=== PATIENT | male | born 1950 | race Caucasian/White ===

== ENCOUNTER 2016-09-12 09:15 | Outpatient (CLI) | payer MEDICARE, BC | END 2016-09-12 09:16 | disposition home or self-care (01) | DX: I10 Essential (primary) hypertension (principal); E78.2 Mixed hyperlipidemia; M54.16 Radiculopathy, lumbar region; Z72.89 Other problems related to lifestyle ==

== ENCOUNTER 2016-11-19 08:49 | Outpatient (CLI) | payer MEDICARE, BC | END 2016-11-19 08:50 | disposition home or self-care (01) | LOC: LAB.F 08:49 | PROVIDERS: ATTEND Internal Medicine | DX: M79.1 Myalgia (principal) | CPT/HCPCS: 36415; 82550 ==

== ENCOUNTER 2017-02-04 09:00 | Outpatient (CLI) | payer MEDICARE, BC ==
[2017-02-04 19:21] LABS: BUN - BLOOD UREA NITROGEN 19 mg/dL (6-20); CALCIUM 9.5 mg/dL (8.5-10.3); CARBON DIOXIDE - CO2 26 mmol/L (21-32); CHLORIDE 100 mmol/L (101-111); CHOL/HDL RATIO 4.1 (<5.0); CHOLESTEROL 124 mg/dL; GFR - MDRD 75 (>89); GLUCOSE 98 mg/dL (70-100); HDL CHOLESTEROL 30 mg/dL; LDL/HDL RATIO 1.5 (<3.6); POTASSIUM 3.7 mmol/L (3.5-5.0); SODIUM 137 mmol/L (135-145); TRIGLYCERIDES 249 mg/dL; VLDL CHOLESTEROL 50 mg/dL
== END 2017-02-04 09:01 | disposition home or self-care (01) ==
LOC: LAB.F 09:00
PROVIDERS: ATTEND Internal Medicine
DX: I10 Essential (primary) hypertension (principal)
CPT/HCPCS: 36415; 80048; 80061; 84460

== ENCOUNTER 2017-06-21 01:57 | Observation (INO) | payer MEDICARE, BC ==
[2017-06-21] MEDS ORDERED: MORPHINE 10 MG/ML VIAL IVP STA (02:17)
[2017-06-21] MEDS ORDERED: SODIUM CHLORIDE 0.9% 1,000 ML IV ONE (02:17)
[2017-06-21] MEDS ORDERED: ONDANSETRON 4 MG/2 ML VIAL IVP STA (02:17)
--- NOTE | 2017-06-21 02:22 | ED Physician Documentation ---
History of Present Illness - Stated complaint Stated Complaint: ABD PAIN - Chief complaint Chief Complaint: Abd Pain - Additonal information Additional information: 67-year-old male with past medical history of hypertension presents to the emergency department with upper abdominal pain beginning about an hour after eatingSausage.He reports that the pain really flared up after he drank some soda. This was around 7 PM,He has had constant pain since then, had a bowel movement but did not change his pain. He has some nausea but no vomiting. Currently he reports that the pain is diffuse.No urinary symptoms, no fevers. no history of abdominal surgery. Review of Systems Constitutional: denies: Fever Cardiac: denies: Chest pain / pressure, Palpitations Respiratory: denies: Dyspnea, Cough GI: reports: Abdominal Pain, Nausea : denies: Dysuria, Frequency Skin: denies: Rash Musculoskeletal: denies: Extremity pain Neurologic: denies: Altered mental status PD PAST MEDICAL HISTORY - Present Medications Home Medications: Ambulatory Orders Medication Instructions Recorded Confirmed Home Medications Unobtainable 06/21/17 06/21/17 [HOME MEDICATIONS UNOBTAINABLE] - Allergies Allergies/Adverse Reactions: Allergies Allergy/AdvReac Type Severity Reaction Status Date / Time No Known Drug Allergies Allergy Verified 06/21/17 02:07 PD ED PE NORMAL - Vitals Vital signs reviewed: Yes - General General: Alert and oriented X 3, Other (appears mildly uncomfortable ) - HEENT HEENT: PERRL - Neck Neck: Supple, no meningeal sign - Cardiac Cardiac: RRR, No murmur - Respiratory Respiratory: Clear bilaterally - Abdomen Abdomen: Soft, Other ( distension, RUQ TTP without rebound or guarding) - Derm Derm: Warm and dry - Extremities Extremities: No deformity - Neuro Neuro: Alert and oriented X 3 - Psych Psych: Normal mood, Normal affect Results - Vitals Vitals: Vital Signs - 24 hr 06/21/17 02:06 Temperature 36.6 C Heart Rate 95 Respiratory 18 Rate Blood Pressure 137/83 H O2 Saturation 97 Oxygen O2 Source Room air - EKG (time done) 0228 Rate: Rate (enter#) (84) Rhythm: NSR [place]: Normal Intervals: Normal [place] Ischemia: Normal ST segments - Labs Labs: Laboratory Tests 06/21/17 06/21/17 02:30 02:30 WBC 12.1 H RBC 5.55 Hgb 15.9 Hct 46.9 MCV 84.5 MCH 28.6 MCHC 33.8 RDW 14.2 Plt Count 185 MPV 8.9 Neut # 9.8 H Lymph # 1.2 L [place] # 0.8 Eos # 0.1 Baso # 0.1 Absolute Nucleated RBC 0.00 Nucleated RBC % 0.0 Sodium 138 Potassium 3.5 Chloride 99 L Carbon Dioxide 27 Anion Gap 12.0 BUN 21 H Creatinine 1.1 Estimated GFR (MDRD) 67 L Glucose 122 H Calcium 9.4 Total Bilirubin 0.8 AST 21 ALT 25 Alkaline Phosphatase 73 Total Protein 7.6 Albumin 4.3 Globulin 3.3 Albumin/Globulin Ratio 1.3 Lipase 19 L - Rads (name of study) CT abd/pel Radiology: Discussed with rads (Appears to have dilated bowel consistent with enteritis. Appearnce of lymphoma. ) PD MEDICAL DECISION MAKING - ED course ED course: 67-year-old male with abdominal pain and distention and nausea found to have normal laboratory evaluation, CT scan with lymphoma as well as enteritis versus partial or early small bowel obstruction. 446AM Discussed with patient and his CT findings concerning for lymphoma and need for follow up. They expressed understanding of possible or likely cancer diagnosis. Patient continues to have some abdominal discomfort, he has had no vomiting. We will p.o. challenge, and reassess. 513 am Patient has had only mild improvement in his symptoms, was given p.o. medications for the possibility of discharge home, however I discussed patient' s case with Dr. Lou from surgery, he recommended that the patient be admitted to the hospital for further monitoring. I do have concern on review of his CT scan with decompressed distal small bowel that this may be more likely to represent a early small bowel obstruction or partial small bowel obstruction than an infectious enteritis. Especially given that the patient has not had fevers or diarrhea. It is also possible that his bowel obstruction could be due to lymphoma. Departure - Departure Disposition: 66 [facility] DC/Xfer Clinical Impression: Abdominal pain, Lymphadenopathy
[2017-06-21 02:36] LABS: BASOPHILS # (AUTO) 0.1 10^3/uL (0.0-0.1); BASOPHILS % (AUTO) 0.6 %; EOSINOPHILS # (AUTO) 0.1 10^3/uL (0.0-0.7); EOSINOPHILS % (AUTO) 0.9 %; HCT - HEMATOCRIT 46.9 % (42.0-52.0); HGB - HEMOGLOBIN 15.9 g/dL (14.0-18.0); LYMPHOCYTES # (AUTO) 1.2 10^3/uL (1.5-3.5); LYMPHOCYTES % (AUTO) 10.2 %; MEAN CORPUSCULAR HEMOGLOBIN 28.6 pg (27.0-31.0); MEAN CORPUSCULAR HGB CONC 33.8 g/dL (32.0-36.0); MEAN CORPUSCULAR VOLUME 84.5 fL (80.0-94.0); MEAN PLATELET VOLUME 8.9 fL (7.4-11.4); MONOCYTES # (AUTO) 0.8 10^3/uL (0.0-1.0); MONOCYTES % (AUTO) 6.9 %; NEUTROPHILS # (AUTO) 9.8 10^3/uL (1.5-6.6); NEUTROPHILS % (AUTO) 81.4 %; RED BLOOD COUNT 5.55 10^6/uL (4.70-6.10); RED CELL DISTRIBUTION WIDTH 14.2 % (12.0-15.0); UNCORRECTED WHITE BLOOD COUNT 12.1 x10^3/uL; WHITE BLOOD COUNT 12.1 x10^3/uL (4.8-10.8)
[2017-06-21] MEDS ORDERED: MORPHINE 2 MG/ML SYRINGE ONE ×2 (02:36)
[2017-06-21] MEDS ORDERED: ONDANSETRON 4 MG/2 ML VIAL ONE (02:37)
[2017-06-21 02:45] LABS: ALBUMIN/GLOBULIN RATIO 1.3 (1.0-2.2); BILIRUBIN,TOTAL 0.8 mg/dL (0.2-1.0); CALCIUM 9.4 mg/dL (8.5-10.3); CREATININE 1.1 mg/dL (0.6-1.2); POTASSIUM 3.5 mmol/L (3.5-5.0); TOTAL PROTEIN 7.6 g/dL (6.7-8.2)
[2017-06-21] MEDS ORDERED: IOPAMIDOL-300 100 ML VIAL ONE ×2 (03:07→10:11)
[2017-06-21] MEDS: IOPAMIDOL-300 100 ML VIAL IVP ONE ×2 (03:26→10:41)
--- NOTE | 2017-06-21 04:15 | CT Preliminary Report ---
Exam: CT ABDOMEN/PELVIS W/ IMPRESSION: 1. Mildly distended fluid-filled jejunum in the anterior left abdomen with adjacent mesenteric edema. No discrete transition seen and this may reflect a nonspecific enteritis versus early/partial small bowel obstruction. 2. Widespread adenopathy concerning for lymphoma. No definitive lymphomatous involvement of the bowel . 3. Previous cholecystectomy. 4. Severe coronary calcifications. Results discussed with Dr. Escobedo. [facility] SITE ID: [id number]
--- NOTE | 2017-06-21 04:28 | CT Report ---
EXAM: CT ABDOMEN AND PELVIS EXAM DATE: 06/21/2017 03:27 AM. CLINICAL HISTORY: Upper abdominal pain, nausea. COMPARISONS: None. TECHNIQUE: Routine helical CT imaging was performed through the abdomen and pelvis. IV contrast: Yes . Enteric contrast: No . Reconstructions: Coronal and sagittal. In accordance with CT protocol optimization, one or more of the following dose reduction techniques w ere utilized for this exam: automated exposure control, adjustment of mA and/or KV based on patient s ize, or use of iterative reconstructive technique. FINDINGS: Lung Bases: Large lymph node posterior to the esophagus is incompletely imaged but measures up to 48 x 26 mm on image 1. Severe coronary calcifications. Abdominal/pelvic adenopathy: Extensive mesenteric and retroperitoneal adenopathy. Mild pelvic and ing uinal adenopathy also present. Retroperitoneal lymph nodes measure up to 30 x 25 mm between the aorta and IVC on axial image 43. Mesenteric lymph nodes measure up to 35 x 22 mm in the left mesentery on image 46 series 3. Mildly prominent inguinal lymph nodes are indeterminate for lymphoma involvement, measuring up to 15 mm short axis on the right on image 91 series 3. Favor these being reactive lymph nodes over lymphoma tous lymph nodes. Liver: Unremarkable. No suspicious masses. Gallbladder/Bile Ducts: Unremarkable post cholecystectomy. Spleen: Unremarkable. Pancreas: Unremarkable. Adrenal Glands: Unremarkable. Kidneys: Unremarkable. No suspicious masses or hydronephrosis. Peritoneal Cavity/Bowel: Mildly distended fluid-filled jejunum in the anterior left abdomen with [place] mesenteric edema. No discrete transition seen but there are relatively decompressed mid to dista l small bowel loops. No free air seen. Mild free fluid. Pelvic Organs: Bladder and prostate appear unremarkable. Vasculature: No aneurysms or other significant abnormality. Bones: No significant abnormality. Other: None. IMPRESSION: 1. Mildly distended fluid-filled jejunum in the anterior left abdomen with adjacent mesenteric edema. No discrete transition seen and this may reflect a nonspecific enteritis versus early/partial small bowel obstruction. 2. Widespread adenopathy concerning for lymphoma. No definitive lymphomatous involvement of the bowel . 3. Previous cholecystectomy. 4. Severe coronary calcifications. Results discussed with Dr. Escobedo. [facility] Referring Provider Line: [phone] SITE ID: [id number]
[2017-06-21] MEDS ORDERED: oxyCOD/ACETAMIN 5 MG/325 MG TABLET PO STA (04:48)
[2017-06-21] MEDS ORDERED: oxyCOD/ACETAMIN 5 MG/325 MG TABLET PO ONE (04:56)
[2017-06-21] MEDS ORDERED: SODIUM CHLORIDE FLUSH 0.9% 10 ML SYRINGE IVP PRN (05:22)
[2017-06-21] MEDS ORDERED: MORPHINE 2 MG/ML SYRINGE IVP PRN (05:22)
[2017-06-21] MEDS ORDERED: PROMETHAZINE 25 MG/1 ML VIAL IM PRN (05:22)
[2017-06-21] MEDS ORDERED: ONDANSETRON 4 MG/2 ML VIAL IVP PRN (05:22)
[2017-06-21] MEDS ORDERED: oxyCODONE 5 MG TABLET PO PRN ×2 (05:22)
[2017-06-21] MEDS ORDERED: PROCHLORPERAZINE 10 MG/2 ML VIAL IVP PRN (05:22)
[2017-06-21] MEDS ORDERED: ACETAMINOPHEN 325 MG TABLET PO PRN (05:22)
--- NOTE | 2017-06-21 05:28 | HISTORY & PHYSICAL EXAMINATION ---
Chief Complaint - Chief Complaint Chief Complaint: Abdominal pain History of Present Illness - Admitted From Admitted From:: Emergency department - History Obtained From Records Reviewed: Yes History obtained from: Patient Exam Limitations: None - History of Present Illness HPI Comment/Other: Patient is a 67-year-old gentleman with a past medical history significant for hypertension, hyperlipidemia, obesity and GERD who presented to the emergency department with a chief complaint of abdominal pain. The patient states he was in his normal state of health until around 6 PM tonight when he states that he made himself a sandwich and was watching football on the [employer]. He states that just after he drank a sip of diet Pepsi he began having severe abdominal pain. He states the pain was located just above the umbilicus and moved around into his epigastric area. He states that the pain was a colicky/spasming pain that was coming and going. He states that he felt some acid reflux and took a Pepto- Bismol. He states that the pain continued to come and go and he took some Tums but the pain just would not resolve. He states that he tried to go to bed but the pain was too much and he ended up coming into the emergency department. The patient states that he did not have any nausea with the pain while at home. He denies any fevers, chills or diarrhea. He does state that he tried to have a bowel movement and was able to have a small bowel movement but this did not help to alleviate the pain. The patient denies any pain similar to this in the past. The patient does admit to having a cholecystectomy in the past. He denies any other major abdominal surgeries. The patient denies any bloody stools. Patient denies any headaches, blurred vision, runny nose, sore throat, nasal congestion, difficulty swallowing, neck pain, neck stiffness, chest pain, shortness of air, orthopnea, PND, dysuria, increased urinary urgency, increased urinary frequency, joint swelling, muscle aches, muscle pain, back pain, recent unintentional weight loss or changes in his appetite. He also denies any focal neurologic deficits. On presentation to the emergency department the patient was found to be afebrile he was slightly hypertensive and slightly tachycardic but was not in any respiratory distress. Patient was having some mild to moderate distress secondary to his abdominal pain. The patient was given a dose of IV morphine in the emergency department which did help with the pain. Patient was also given an antiemetic as he did become nauseated in the emergency department. The patient underwent routine lab work which showed a leukocytosis of 12.1 but electrolytes were all within normal limits. The patient underwent a CT of his abdomen and pelvis given the severity of his pain. The CT revealed mildly distended fluid filled jejunum in the anterior left abdomen with adjacent mesenteric edema. There was no discrete transition seen and it was thought that this may reflect non-specific enteritis versus early/partial small bowel obstruction. The patient was also found to have widespread adenopathy that was concerning for lymphoma. The emergency room physician spoke with the surgeon suction dredge dumping supervisor Dr. Marek Lou and he suggested that the patient be placed in observation for further assessment and that he would see the patient in consultation. History - Past Medical History Cardiovascular: reports: Hypertension, High cholesterol GI: reports: GERD MRSA Hx?: No Other Past Medical History: Obesity - Past Surgical History General: reports: Cholecystectomy Ortho: reports: Rotator cuff repair - Family & Social History Family History: Mother: , Cancer, Father: , CAD Living arrangement: At home Living Situation: With spouse/s.o. Social History Notes: Patient is originally from [place] moved to [place] 1 year ago. Retired. Lives with and has 2 kids. He moved out here as his sister lives here. The patient states that he smoked for a few years while he was in the [employer] but quit at the age of 22. He does drink daily but did not specify how much he drinks. He denies any illicit drug use. - POLST Patient has POLST: No POLST Status: Full Code Meds/Allgy - Home Medications Home Medications: Ambulatory Orders Medication Instructions Recorded Confirmed Home Medications Unobtainable 06/21/17 06/21/17 [HOME MEDICATIONS UNOBTAINABLE] - Allergies Allergies/Adverse Reactions: Allergies Allergy/AdvReac Type Severity Reaction Status Date / Time No Known Drug Allergies Allergy Verified 06/21/17 02:07 Review of Systems - Other Findings Other Findings: A comprehensive review of systems was performed the pertinent positives and negatives are stated above in the HPI and the remainder of the review of systems is negative. Exam - Vital Signs Reviewed Vital Signs: Yes Vital Signs: Vital Signs x48h Temp Pulse Resp BP Pulse Ox 06/21/17 02:06 36.6 C 95 18 137/83 H 97 - Physical Exam General Appearance: positive: Alert, Mild distress (Secondary to abdominal pain) Eyes Bilateral: positive: Normal inspection, PERRL, EOMI, No lid inflammation, Conjunctivae nml, No scleral icterus ENT: positive: ENT inspection nml, Pharynx nml, Dry mucous membranes. negative : Purulent nasal drainage, Pharyngeal erythema, Oral lesions Neck: positive: Nml inspection, Thyroid nml, No JVD, Trachea midline. negative : Thyromegaly, Lymphadenopathy (R), Lymphadenopathy (L), Carotid bruit, Tracheal deviation Respiratory: positive: Chest non-tender, No respiratory distress, Breath sounds nml. negative: Wheezes, Rales, Rhonchi Cardiovascular: positive: Regular rate & rhythm, No murmur, No gallop Peripheral Pulses: positive: 2+ Abdomen: positive: Tenderness (Periumbilical and upper abdomen), Abnml bowel sounds (Decreased). negative: Guarding, Rebound, Hepatomegaly Back: positive: Nml inspection. negative: CVA tenderness (R), CVA tenderness (L ) Skin: positive: Color nml, No rash, Warm, Dry. negative: Cyanosis, Pallor Extremities: positive: Non-tender, Full ROM, Nml appearance, No pedal edema Neurologic/Psychiatric: positive: Oriented x3, CN's nml (2-12), Motor nml, Sensation nml, Mood/affect nml Conclusion/Plan - Problem List (1) Small bowel obstruction Conclusion/Plan: Patient presented with abdominal pain starting late yesterday evening that persisted. Patient nauseated requiring antiemetics in the emergency department. CT abdomen/pelvis showed likely partial small bowel obstruction versus possible enteritis. Patient has history of cholecystectomy. Patient does not have symptoms consistent with enteritis as he does not have diarrhea, fever and does not appear infected. Plan: N.p.o. IV fluids IV antiemetics Pain control with IV pain medication Surgery consult Monitor (2) Lymphadenopathy Conclusion/Plan: Patient's CT scan shows diffuse widespread adenopathy concerning for lymphoma. Patient has extensive mesenteric and retroperitoneal adenopathy. Mild pelvic and inguinal adenopathy also present. Patient also has lymphadenopathy in the lungs. Patient denies any recent unintentional weight loss, night sweats or chills. Plan: Patient will need close outpatient follow-up for further workup of lymphadenopathy as he will need biopsy. (3) Hypertension Conclusion/Plan: Patient's blood pressure is mildly elevated on presentation this is likely secondary to pain. The patient does take antihypertensive medication at home but cannot recall what medications he is on. We will ask the pharmacy to try to get his medication records so that we can continue him on his home medications. Qualifiers: Hypertension type: essential hypertension Qualified Code(s): I10 - Essential (primary) hypertension (4) Hyperlipidemia Conclusion/Plan: The patient states that he does take a statin at home but does not know the statin or the dose. We will find out the patient's home medication and restart his statin. (5) Prophylactic use of low molecular weight heparin for venous thromboembolism Conclusion/Plan: Placed on Lovenox for DVT prophylaxis while patient is hospitalized - Lab Results Lab results reviewed: Yes Fish Bones: 06/21/17 02:30 06/21/17 02:30 Other Lab Results: Laboratory Results WBC 12.1 x10^3/uL (4.8-10.8) H 06/21/17 02:30 RBC 5.55 10^6/uL (4.70-6.10) 06/21/17 02:30 Hgb 15.9 g/dL (14.0-18.0) 06/21/17 02:30 Hct 46.9 % (42.0-52.0) 06/21/17 02:30 MCV 84.5 fL (80.0-94.0) 06/21/17 02:30 MCH 28.6 pg (27.0-31.0) 06/21/17 02:30 MCHC 33.8 g/dL (32.0-36.0) 06/21/17 02:30 RDW 14.2 % (12.0-15.0) 06/21/17 02:30 Plt Count 185 10^3/uL (130-450) 06/21/17 02:30 MPV 8.9 fL (7.4-11.4) 06/21/17 02:30 Neut # 9.8 10^3/uL (1.5-6.6) H 06/21/17 02:30 Lymph # 1.2 10^3/uL (1.5-3.5) L 06/21/17 02:30 [place] # 0.8 10^3/uL (0.0-1.0) 06/21/17 02:30 Eos # 0.1 10^3/uL (0.0-0.7) 06/21/17 02:30 Baso # 0.1 10^3/uL (0.0-0.1) 06/21/17 02:30 Absolute Nucleated RBC 0.00 x10^3/uL 06/21/17 02:30 Nucleated RBC % 0.0 /100WBC 06/21/17 02:30 Sodium 138 mmol/L (135-145) 06/21/17 02:30 Potassium 3.5 mmol/L (3.5-5.0) 06/21/17 02:30 Chloride 99 mmol/L (101-111) L 06/21/17 02:30 Carbon Dioxide 27 mmol/L (21-32) 06/21/17 02:30 Anion Gap 12.0 (6-13) 06/21/17 02:30 BUN 21 mg/dL (6-20) H 06/21/17 02:30 Creatinine 1.1 mg/dL (0.6-1.2) 06/21/17 02:30 Estimated GFR (MDRD) 67 (>89) L 06/21/17 02:30 Glucose 122 mg/dL (70-100) H 06/21/17 02:30 Calcium 9.4 mg/dL (8.5-10.3) 06/21/17 02:30 Total Bilirubin 0.8 mg/dL (0.2-1.0) 06/21/17 02:30 AST 21 IU/L (10-42) 06/21/17 02:30 ALT 25 IU/L (10-60) 06/21/17 02:30 Alkaline Phosphatase 73 IU/L (42-121) 06/21/17 02:30 Total Protein 7.6 g/dL (6.7-8.2) 06/21/17 02:30 Albumin 4.3 g/dL (3.2-5.5) 06/21/17 02:30 Globulin 3.3 g/dL (2.1-4.2) 06/21/17 02:30 Albumin/Globulin Ratio 1.3 (1.0-2.2) 06/21/17 02:30 Lipase 19 U/L (22-51) L 06/21/17 02:30 - Diagnostic Imaging Results Diagnostic Imaging Results: positive: Final report reviewed Diagnostic Imaging Results Comments: CT abdomen/pelvis Impression: 1. Mildly distended fluid filled jejunum in the anterior left abdomen with adjacent mesenteric edema. No discrete transition seen in this may reflect a nonspecific enteritis versus early/partial small bowel obstruction. 2. Widespread adenopathy concerning for lymphoma. No definitive lymphomatous involvement of the bowel. 3. Previous cholecystectomy 4. Severe coronary calcifications - EKG Results EKG Interpreted Independently: Yes EKG Findings: Sinus rhythm no ST elevations or ischemic changes Issues/Core Measures - Anticipated LOS Anticipated Stay Length: Less than 2 midnights - [facility] Requirement for [facility] I expect patient to be DC'd or transferred within 96 hours.: Yes - DVT/VTE - Prophylaxis VTE/DVT Prophylaxis med ordered at admit?: Yes
[2017-06-21] MEDS: SODIUM CHLORIDE 0.9% 1,000 ML IV SCH ×2 (06:16→17:03)
[2017-06-21] MEDS: SODIUM CHLORIDE FLUSH 0.9% 10 ML SYRINGE IVP SCH ×2 (06:16→10:12)
[2017-06-21] MEDS ORDERED: POLYETHYLENE GLYCOL 3350 17 GM PACKET PO SCH (09:00)
[2017-06-21] MEDS ORDERED: FAMOTIDINE 20 MG TABLET PO SCH (09:00)
[2017-06-21] MEDS ORDERED: ENOXAPARIN 40 MG/0.4 ML SYRINGE SUBQ SCH (09:00)
[2017-06-21] MEDS ORDERED: IOPAMIDOL-300 100 ML VIAL IVP ONE (10:41)
--- NOTE | 2017-06-21 11:15 | CT Preliminary Report ---
Exam: CT CHEST W/ IMPRESSION: Bulky subcarinal and left greater than right upper paratracheal adenopathy. Extensive coronary arteri al atherosclerotic calcifications. [facility] SITE ID: [id number]
--- NOTE | 2017-06-21 11:33 | CT Report ---
EXAM: CT CHEST EXAM DATE: 06/21/2017 10:42 AM. CLINICAL HISTORY: Mediastinal lymphadenopathy. COMPARISONS: None. TECHNIQUE: Routine helical CT imaging was performed through the chest. IV contrast: 100 cc Isovue-300 . Reconstructions: Coronal and sagittal. In accordance with CT protocol optimization, one or more of the following dose reduction techniques w ere utilized for this exam: automated exposure control, adjustment of mA and/or KV based on patient s ize, or use of iterative reconstructive technique. FINDINGS: Lungs/Pleura: No nodules, bronchial thickening, consolidation, or edema. Pulmonary vasculature is nor mal. No pericardial or pleural effusion. No pneumothorax. Mediastinum: Mediastinal adenopathy is present. Account Review Specialist lymph nodes include a left upper parat martin station 2L lymph node measuring 2.2 cm short axis on series 3 image 16. 1.4 cm short axis right upper paratracheal station 2R lymph node. Station 7 subcarinal lymph nodes measure 2.6 cm short axis on image 34. There is leftward displacemen t of the esophagus by subcarinal adenopathy. No bulky right lower paratracheal or prevascular adenopathy. [place] mediastinal lymph nodes are also noted. Extensive coronary arterial atherosclerotic calcifications. No cardiomegaly. No pericardial effusion. Bones: Lower thoracic spine DISH. Mild mid to lower thoracic spine degenerative disk changes. Visualized Abdomen: Please see separate abdominal CT report same day. Other: None. IMPRESSION: 1. Bulky subcarinal and left greater than right upper paratracheal adenopathy. Question lymphoma or o ther cause. 2. Extensive coronary arterial atherosclerotic calcifications. [facility] Referring Provider Line: [phone] SITE ID: [id number]
[2017-06-21] MEDS ORDERED: LACTATED RINGERS 1,000 ML IV ONE ×2 (14:03→14:27)
[2017-06-21] MEDS ORDERED: BUPIVACAINE 0.5% PF 30 ML VIAL INFIL ONE (14:24)
[2017-06-21] MEDS ORDERED: ACETAMINOPHEN 1,000 MG/100 ML 100 ML IV ONE (14:40)
[2017-06-21] MEDS ORDERED: LIDOCAINE-MPF 2% 5 ML VIAL IM ONE (14:40)
[2017-06-21] MEDS ORDERED: PROPOFOL 200 MG/20 ML VIAL IVP ONE (14:40)
[2017-06-21] MEDS ORDERED: KETOROLAC 30 MG/ML VIAL IVP ONE (14:40)
[2017-06-21] MEDS ORDERED: HYDROcod/ACETAM 5/325 MG TABLET PO PRN (15:08)
[2017-06-21 16:18] VITALS: BP 140/76
--- NOTE | 2017-06-21 16:52 | Discharge Plan ---
Discharge Plan Disposition: 01 Home, Self Care Condition: Stable Diet: Regular Activity Restrictions: Activity as Tolerated Shower Restrictions: No Weight Bearing: Full Weight Instruction Topics: Lymphoma Hodgkin Ch, Lymphoma Non Hodgkin Ch, Obstruction Sm Bowel Additional Instructions or Follow Up instructions: May follow up Dr. Lou in one week, and follow up PCP in two weeks. Should symptoms return or worsen, present ER or call 911. Patient is welcome to our service. No Smoking: If you smoke, Please STOP! Call for help.
--- NOTE | 2017-06-21 17:03 | DISCHARGE SUMMARY ---
"Discharge Summary Discharge Date: 06/21/17 Discharging Provider: Cason Primary Care Provider: pt state he just change a new PCP, he did not know the name yet Code Status: Attempt Resuscitation Condition at Discharge: Stable Discharge Disposition: 01 Home, Self Care Discharge Facility Name: home - DIAGNOSES Admission Diagnoses: (1) Small bowel obstruction (2) Lymphadenopathy (3) Hypertension (4) Hyperlipidemia Discharge Diagnoses with Status of Each Condition: (1) Small bowel obstruction pt report no more abdominal pain, pt is tolerate the food. Dr. Lou told me if pt can tolerate the food, pt can be D/C to home. pt report he had bowel movement just before he went to ER (2) Lymphadenopathy pt has Biopsy today with Dr. Lou, will follow up Dr. Lou in one week. (3) Hypertension stable, continue home medication regime (4) Hyperlipidemia stable, follow up home medication regime. - HPI History of Present Illness: please refer from 's HPI on 06/21/17 as the following: Patient is a 67-year-old gentleman with a past medical history significant for hypertension, hyperlipidemia, obesity and GERD who presented to the emergency department with a chief complaint of abdominal pain. The patient states he was in his normal state of health until around 6 PM tonight when he states that he made himself a sandwich and was watching football on the [employer]. He states that just after he drank a sip of diet Pepsi he began having severe abdominal pain. He states the pain was located just above the umbilicus and moved around into his epigastric area. He states that the pain was a colicky/spasming pain that was coming and going. He states that he felt some acid reflux and took a Pepto- Bismol. He states that the pain continued to come and go and he took some Tums but the pain just would not resolve. He states that he tried to go to bed but the pain was too much and he ended up coming into the emergency department. The patient states that he did not have any nausea with the pain while at home. He denies any fevers, chills or diarrhea. He does state that he tried to have a bowel movement and was able to have a small bowel movement but this did not help to alleviate the pain. The patient denies any pain similar to this in the past. The patient does admit to having a cholecystectomy in the past. He denies any other major abdominal surgeries. The patient denies any bloody stools. Patient denies any headaches, blurred vision, runny nose, sore throat, nasal congestion, difficulty swallowing, neck pain, neck stiffness, chest pain, shortness of air, orthopnea, PND, dysuria, increased urinary urgency, increased urinary frequency, joint swelling, muscle aches, muscle pain, back pain, recent unintentional weight loss or changes in his appetite. He also denies any focal neurologic deficits. On presentation to the emergency department the patient was found to be afebrile he was slightly hypertensive and slightly tachycardic but was not in any respiratory distress. Patient was having some mild to moderate distress secondary to his abdominal pain. The patient was given a dose of IV morphine in the emergency department which did help with the pain. Patient was also given an antiemetic as he did become nauseated in the emergency department. The patient underwent routine lab work which showed a leukocytosis of 12.1 but electrolytes were all within normal limits. The patient underwent a CT of his abdomen and pelvis given the severity of his pain. The CT revealed mildly distended fluid filled jejunum in the anterior left abdomen with adjacent mesenteric edema. There was no discrete transition seen and it was thought that this may reflect non-specific enteritis versus early/partial small bowel obstruction. The patient was also found to have widespread adenopathy that was concerning for lymphoma. The emergency room physician spoke with the surgeon continuous still operator Dr. Marek Lou and he suggested that the patient be placed in observation for further assessment and that he would see the patient in consultation. - CONSULTS | PROCEDURES Consultations: surgeon Dr. Lou Procedures: Lymph node biopsy - HOSPITAL COURSE Hospital Course: pt was admitted for abdominal pain, partial small bowel obstruction, and possible lymphoma. Pt report he had a bowel movement just before he came to ER. Pt report no more abdominal pain, no nausea or vomiting at hospital course. Pt tolerate the food at dinner. Dr. Lou, surgeon, did biopsy for pt's lymphoma. Dr. Lou state pt can be discharged if pt can tolerate the food. Pt is advised to follow up Dr. Lou in one week. - ALLERGIES Allergies/Adverse Reactions: Allergies Allergy/AdvReac Type Severity Reaction Status Date / Time No Known Drug Allergies Allergy Verified 06/21/17 02:07 - MEDICATIONS Home Medications: Ambulatory Orders Medication Instructions Recorded Confirmed Amlodipine Besylate 10 mg PO DAILY 06/21/17 06/21/17 Atorvastatin Calcium 20 mg PO 2100 06/21/17 06/21/17 Famotidine 40 mg PO DAILY 06/21/17 06/21/17 Lisinopril 40 mg PO DAILY 06/21/17 06/21/17 - PHYSICAL EXAM AT DISCHARGE General Appearance: positive: No acute distress, Alert. negative: Lethargic Eyes Bilateral: positive: Normal inspection, PERRL, EOMI, No lid inflammation, Conjunctivae nml ENT: positive: ENT inspection nml, Pharynx nml, No signs of dehydration. negative: Purulent nasal drainage, Pharyngeal erythema, Oral lesions, Dry mucous membranes Neck: positive: Nml inspection, Thyroid nml, No JVD, Trachea midline, Lymphadenopathy (R), Lymphadenopathy (L). negative: Thyromegaly, Stiff neck, Carotid bruit, Swelling/bruising, Tracheal deviation Respiratory: positive: Chest non-tender, No respiratory distress, Breath sounds nml. negative: Wheezes, Rales, Rhonchi Cardiovascular: positive: Regular rate & rhythm, No murmur, No gallop. negative : Irregularly irregular, Extrasystoles, Tachycardia, Bradycardia, Systolic murmur, Diastolic murmur Peripheral Pulses: positive: 2+ Abdomen: positive: Non-tender, No organomegaly, Nml bowel sounds, No distention. negative: Tenderness, Guarding, Rebound, Abnml bowel sounds Back: positive: Nml inspection. negative: CVA tenderness (R), CVA tenderness (L ) Skin: positive: Color nml, No rash, Warm, Dry. negative: Cyanosis, Diaphoresis , Pallor Extremities: positive: Non-tender, Full ROM, Nml appearance. negative: Pedal edema, Calf tenderness, Joint swelling, Jennifer's sign/cords Neurologic/Psychiatric: positive: Oriented x3, Motor nml, Sensation nml, Mood/ affect nml. negative: Sensory loss, Facial droop, Slurred/abnml speech, Depressed mood/affect - LABS Result Diagrams: 06/21/17 02:30 06/21/17 02:30 - FOLLOW UP Follow Up: Pt is advised to follow up Dr. Lou in one week, follow up PCP in two weeks. Should symptoms return or worsen, present ER or call 911. D/C medication is as Home medication regime. - TIME SPENT Time Spent in Discharge (Minutes): 60"
--- NOTE | 2017-06-26 08:43 | Ultrasound Report ---
BILATERAL GROIN ULTRASOUND: 06/21/2017 CLINICAL INDICATION: Bilateral inguinal adenopathy on CT of 06/21/2017. COMPARISON: CT 06/21/2017. TECHNIQUE: Real-time scanning was performed with factory representative static images obtained. FINDINGS: Ultrasound of the bilateral inguinal regions was performed. The largest left and right inguinal lymph nodes were identified with ultrasound, and the overlying skin marked with indelible ink. Depth to the left inguinal lymph node is 2 cm, and to the right inguinal lymph node is 2 cm. IMPRESSION: BILATERAL INGUINAL ADENOPATHY CONFIRMED BY ULTRASOUND, AND SUITABLE SITES FOR EXCISIONAL BIOPSY MARKED FOR DR. REINOSO, REQUESTED. TD: 06/21/2017 13:24 ANGELA
[2017-06-26 16:01] LABS: TEST RESULT REPORT (())
--- NOTE | 2017-06-26 23:36 | OPERATIVE REPORT ---
[address] [address] Operative Report Patient: CHANTEL WOO Admit Date: 06/21/2017 Discharge Date: 06/21/2017 DOS: 06/21/2017 Physician: Amadeo Lou MD DATE OF SURGERY: 06/21/2017. PREOPERATIVE DIAGNOSIS: Lymphadenopathy. POSTOPERATIVE DIAGNOSIS: Lymphadenopathy. NAME OF PROCEDURE: Biopsy, right inguinal lymphadenopathy. SURGEON: Dr. Lou. ANESTHESIA: General. INDICATION FOR PROCEDURE: The patient is a 67-year-old male who presented to the emergency room with abdominal pain and nausea. He had a CT scan of the abdomen and pelvis, which showed multiple intra-abdominal lymphadenopathy along with lymphadenopathy in bilateral groin. A diagnosis is needed and, therefore, the easiest lymph node to biopsy would be in the right inguinal region. FINDINGS OF THE SURGERY: The patient had very large matted lymph node in the right inguinal region. A biopsy was obtained in order to send for diagnostic studies. PROCEDURE: After informed consent was obtained, the patient was taken to the operating room and placed in supine position. General endotracheal anesthesia was administered. The patient's right groin was then prepped and draped in usual sterile fashion. Transverse incision was then made above the groin crease in the skin overlying the enlarged lymph node, which had previously marked with ultrasound. The patient was quite large and therefore was not able to be readily identified on palpation. Incision after making it in the skin was then carried down to the lymph node using electrocautery. The lymph node was quite large and appeared to be attached to the underlying femoral vessels. I had attempted to free up the tissue around the lymph node; however, it was quite adherent. With careful dissection, I was able to mobilize the top anterior portion of the lymph node. The lymph node was then divided. I did not remove the entire lymph node as stated, it appeared to be adherent to the femoral vessels. The lymph node that was then removed was then sent for appropriate lab studies, including pathology, flow cytometry, and culture. The wound was irrigated and hemostasis was obtained using electrocautery. Subcutaneous tissue was closed using 3-0 Vicryl suture. The skin was closed using 4 Monocryl subcuticular stitch. The surrounding skin was then injected with a local anesthesia. Dermabond was then placed upon the closed incision. The patient was then awakened, extubated and taken from the operating room in stable condition. ESTIMATED BLOOD LOSS: Less than 5 mL. C COMPLICATIONS: None. CONDITION OF THE PATIENT AT THE END OF THE PROCEDURE: Stable. SPECIMENS: Right inguinal lymph node biopsy. DRAINS AND PACKS: None. CLASSIFICATION: Wound is clean. Amadeo Lou MD SLM TD: 06/26/2017 23:35
--- NOTE | 2017-06-27 11:03 | Discharge Plan ---
[address] [address] DATE OF SERVICE: Physician: Amadeo Lou MD REFERRING PHYSICIAN: Brian Carrington MD REASON FOR CONSULTATION: Abdominal pain. HISTORY OF PRESENT ILLNESS: The patient is a 67-year-old male who, the night prior, started to have abdominal pain in the mid abdomen after eating. This is the first time he has had this. He did have some nausea. He took some Pepto-Bismol without improvement. He then came to the emergency room to be evaluated. He had a CT s can of the abdomen and pelvis which showed multiple intra-abdominal lymphadenopathy, along with lymphadenopathy in bilateral inguinal region. This first the patient has heard of this. He has not had any fever or chills, lezama ges in bowel movements, weight changes, etc. PAST SURGICAL HISTORY 1. Cholecystectomy. 2. Shoulder surgery. MEDICAL PROBLEMS: Hypertension, gastroesophageal reflux disease, hypercholesterolemia, and obesity. MEDICATIONS: He does not know which medication he is on currently. ALLERGIES TO MEDICATIONS: NONE. SOCIAL HISTORY: The patient is . FAMILY HISTORY: Mother with unknown cancer. Father with coronary artery disease. HABITS: Patient does socially use alcohol. He has quit smoking. Denies any drug use. REVIEW OF SYSTEMS GASTROINTESTINAL: Abdominal pain. Gastroesophageal reflux disease. A 12-point review of systems was obtained with pertinent positives discussed and all others negative. PHYSICAL EXAMINATION VITAL SIGNS: Temperature is 36.6, pulse 95, respirations 18, blood pressure 137/83. GENERAL: The patient is lying in bed and cooperative, in no distress at the current time, without an y complaints. HEENT: Eyes nonicteric. NECK: No lymphadenopathy. HEART: Regular. LUNGS: Clear. BACK: Nontender. ABDOMEN: Soft, nontender. No hernias. EXTREMITIES: No edema or cyanosis. Inguinal region is quite large and I do not feel any of the enla rged lymph nodes that are seen on CT scan. PSYCHOLOGICAL: The patient is coherent, cooperative, and appears to answer questions fully. DIAGNOSTIC DATA: CT scan of the abdomen and pelvis: See history of present illness. White blood ce ll count of 12. Lymphocytes 1.2. Creatinine 1.1. ASSESSMENT 1. Abdominal pain and nausea. This most likely is caused by the enlarged lymph nodes intra-abdomi ysabel that may cause a localized ileus, that has resolved at the current time. He does have inguinal lymphade nopathy, and I would recommend biopsy of one of these lymph nodes in order to try to obtain a diagnosis for hi s lymphadenopathy, which is most likely lymphoma. The risks and possible complications of the pr ocedure have been explained to him. He accepts risks and wishes to proceed. 2. Obesity. 3. Hypertension, on medications. 4. Gastroesophageal reflux disease, on medications. PLAN 1. N.p.o. 2. IV fluids. 3. Ultrasound in order to georgi the lymph node that will be biopsied in the inguinal region. 4. Once the ultrasound has been completed, then we will see about doing a lymph node biopsy of the inguinal region. Dictating Provider: MD TU Finley/ TD: 06/27/2017 04:20
--- NOTE | 2017-06-27 14:19 | CONSULTATION NOTE ---
DATE OF REFERRAL: 06/26/2017 REFERRING PHYSICIAN: Brian Carrington MD REASON FOR CONSULTATION: Abdominal pain. HISTORY OF PRESENT ILLNESS: The patient is a 67-year-old male who, the night prior, started to have abdominal pain in the mid abdomen after eating. This is the first time he has had this. He did have some nausea. He took some Pepto- Bismol without improvement. He then came to the emergency room to be evaluated. He had a CT scan of the abdomen and pelvis which showed multiple intraabdominal lymphadenopathy, along with lymphadenopathy in bilateral inguinal region. This is the first the patient has heard of this. He has not had any fever or chills, changes in bowel movements, weight changes, etc. PAST SURGICAL HISTORY 1. Cholecystectomy. 2. Shoulder surgery. MEDICAL PROBLEMS: Hypertension, gastroesophageal reflux disease, hypercholesterolemia, and obesity. MEDICATIONS: He does not know which medication he is on currently. ALLERGIES TO MEDICATIONS: NONE. SOCIAL HISTORY: The patient is . FAMILY HISTORY: Mother with unknown cancer. Father with coronary artery disease. HABITS: Patient does socially use alcohol. He has quit smoking. Denies any drug use. REVIEW OF SYSTEMS GASTROINTESTINAL: Abdominal pain. Gastroesophageal reflux disease. A 12-point review of systems was obtained with pertinent positives discussed and all others negative. PHYSICAL EXAMINATION VITAL SIGNS: Temperature is 36.6, pulse 95, respirations 18, blood pressure 137/ 83. GENERAL: The patient is lying in bed and cooperative, in no distress at the current time, without any complaints. HEENT: Eyes non-icteric. NECK: No lymphadenopathy. HEART: Regular. LUNGS: Clear. BACK: Nontender. ABDOMEN: Soft, nontender. No hernias. EXTREMITIES: No edema or cyanosis. Inguinal region is quite large, and I do not feel any of the enlarged lymph nodes that are seen on CT scan. PSYCHOLOGICAL: The patient is coherent, cooperative, and appears to answer questions fully. DIAGNOSTIC DATA: CT scan of the abdomen and pelvis: See history of present illness. White blood cell count of 12. Lymphocytes 1.2. Creatinine 1.1. ASSESSMENT 1. Abdominal pain and nausea. This most likely is caused by the enlarged lymph nodes intraabdominally that may cause a localized ileus, that has resolved at the current time. He does have inguinal lymphadenopathy, and I would recommend biopsy of one of these lymph nodes in order to try to obtain a diagnosis for his lymphadenopathy, which is most likely lymphoma. The risks and possible complications of the procedure have been explained to him. He accepts the risks and wishes to proceed. 2. Obesity. 3. Hypertension, on medications. 4. Gastroesophageal reflux disease, on medications. PLAN 1. NPO. 2. IV fluids. 3. Ultrasound in order to georgi the lymph node that will be biopsied in the inguinal region. 4. Once the ultrasound has been completed, then we will see about doing a lymph node biopsy of the inguinal region. TD: 06/27/2017 03:20 ANGELA
== END 2017-06-21 17:50 | disposition home or self-care (01) ==
LOC: ED 01:57 → OBS 05:22
PROVIDERS: ADMIT Internal Medicine; ATTEND Nurse Practitioner Gerontology
PROC: 07BH0ZX Excision of Right Inguinal Lymphatic, Open Approach, Diagnostic (ICD-10-PCS; principal; 2017-06-21 12:15)
DX: K56.600 Partial intestinal obstruction, unspecified as to cause (principal); C82.98 Follicular lymphoma, unspecified, lymph nodes of multiple sites; I10 Essential (primary) hypertension; E78.5 Hyperlipidemia, unspecified; E66.9 Obesity, unspecified; K21.9 Gastro-esophageal reflux disease without esophagitis; Z68.32 Body mass index [BMI] 32.0-32.9, adult; Z90.49 Acquired absence of other specified parts of digestive tract; Z87.891 Personal history of nicotine dependence
CPT/HCPCS: 38500; 71260; 74177; 76857; 80053; 81599; 83690; 85025; 93005; 96361; 96374; 96375; 99283; 99284; A9270; G0378; J0131; J2270; J7120; Q9967; 87070; 87205

== ENCOUNTER 2017-08-19 07:47 | Outpatient (CLI) | payer MEDICARE, BC ==
[2017-08-19 12:16] LABS: BASOPHILS % (AUTO) 0.4 %; EOSINOPHILS # (AUTO) 0.1 10^3/uL (0.0-0.7); EOSINOPHILS % (AUTO) 1.7 %; HGB - HEMOGLOBIN 14.5 g/dL (14.0-18.0); LYMPHOCYTES # (AUTO) 1.3 10^3/uL (1.5-3.5); LYMPHOCYTES % (AUTO) 21.8 %; MEAN CORPUSCULAR HEMOGLOBIN 29.3 pg (27.0-31.0); MEAN CORPUSCULAR HGB CONC 35.2 g/dL (32.0-36.0); MEAN CORPUSCULAR VOLUME 83.3 fL (80.0-94.0); MONOCYTES # (AUTO) 0.6 10^3/uL (0.0-1.0); NEUTROPHILS # (AUTO) 4.1 10^3/uL (1.5-6.6); NEUTROPHILS % (AUTO) 66.1 %; PLT - PLATELET COUNT 138 10^3/uL (130-450); RED BLOOD COUNT 4.94 10^6/uL (4.70-6.10); RED CELL DISTRIBUTION WIDTH 13.9 % (12.0-15.0); WHITE BLOOD COUNT 6.1 x10^3/uL (4.8-10.8)
[2017-08-19 12:28] LABS: ALBUMIN 3.9 g/dL (3.2-5.5); ALBUMIN/GLOBULIN RATIO 1.3 (1.0-2.2); ALKALINE PHOSPHATASE 60 IU/L (42-121); ALT ALANINE AMINOTRANSFERASE 21 IU/L (10-60); AST ASPARTATE AMINOTRANSFERASE 18 IU/L (10-42); BUN - BLOOD UREA NITROGEN 13 mg/dL (6-20); CALCIUM 9.2 mg/dL (8.5-10.3); CARBON DIOXIDE - CO2 29 mmol/L (21-32); CHLORIDE 99 mmol/L (101-111); CHOL/HDL RATIO 3.9 (<5.0); CHOLESTEROL 125 mg/dL; CREATININE 1.1 mg/dL (0.6-1.2); GFR - MDRD 67 (>89); GLUCOSE 107 mg/dL (70-100); HDL CHOLESTEROL 32 mg/dL; LDL CHOLESTEROL,CALCULATED 51 mg/dL; LDL/HDL RATIO 1.6 (<3.6); SODIUM 137 mmol/L (135-145); TOTAL PROTEIN 6.9 g/dL (6.7-8.2); VLDL CHOLESTEROL 42 mg/dL
== END 2017-08-19 07:48 | disposition home or self-care (01) ==
LOC: LAB.F 07:47
PROVIDERS: ATTEND Family Medicine
DX: E78.2 Mixed hyperlipidemia (principal); I10 Essential (primary) hypertension
CPT/HCPCS: 36415; 80053; 80061; 83721; 85025

== ENCOUNTER 2017-10-25 08:11 | Outpatient (CLI) | payer MEDICARE, BC ==
--- NOTE | 2017-10-26 16:37 | Ultrasound Report ---
AORTA SCREEN: 10/24/2017 CLINICAL INDICATION: Screening. TECHNIQUE: Real-time sonographic images were performed by the sewer tapper through the aorta. Multiple transportation services representative static images were saved for review. FINDINGS: The abdominal aorta is normal in caliber, measuring 2.1 cm proximally , 2.3 cm in the mid portion, and 1.8 cm distally. The iliacs are normal in caliber. No free fluid is present. IMPRESSION: NO EVIDENCE OF ABDOMINAL AORTIC ANEURYSM. TD: 10/25/2017 14:36 MTDD
== END 2017-10-25 08:12 | disposition home or self-care (01) ==
LOC: DI 08:11
PROVIDERS: ATTEND Internal Medicine
DX: Z13.6 Encounter for screening for cardiovascular disorders (principal)
CPT/HCPCS: 76706

== ENCOUNTER 2018-02-17 11:18 | Outpatient (CLI) | payer MEDICARE, BC | END 2018-02-17 11:19 | disposition home or self-care (01) | LOC: DI 11:18 | PROVIDERS: ATTEND Internal Medicine | DX: I10 Essential (primary) hypertension (principal); R60.0 Localized edema; C85.90 Non-Hodgkin lymphoma, unspecified, unspecified site | CPT/HCPCS: 93306 ==

== ENCOUNTER 2018-05-07 18:50 | Outpatient (CLI) | payer MEDICARE, BC ==
--- NOTE | 2018-05-07 21:52 | XRAY Report ---
Reason: PAIN AF BASE Procedure Date: 05/07/2018 Accession Number: [id number] / [id number] Procedure: XR - Foot 3 View RT CPT Code: FULL RESULT: EXAM: RIGHT FOOT RADIOGRAPHY EXAM DATE: 05/07/2018 07:05 PM. CLINICAL HISTORY: Right foot pain, greatest along the fifth metatarsal. COMPARISON: None. TECHNIQUE: 3 views. FINDINGS: Bones: Old tiny avulsion fracture off the medial aspect head of first proximal phalanx. Trabecular and cortical patterns are otherwise unremarkable. Joints: Very mild noninflammatory changes interphalangeal joints and second MCP joint. Soft Tissues: Normal. No soft tissue swelling. IMPRESSION: No significant abnormality. RADIA
== END 2018-05-07 18:51 | disposition home or self-care (01) ==
LOC: DI 18:50
PROVIDERS: ATTEND Internal Medicine
DX: M79.671 Pain in right foot (principal)

== ENCOUNTER 2018-07-18 10:48 | Outpatient (CLI) | payer MEDICARE, BC ==
--- NOTE | 2018-07-18 14:28 | XRAY Report ---
Reason: Right wrist pain Procedure Date: 07/18/2018 Accession Number: [id number] / [id number] Procedure: XR - Hand 2 View RT CPT Code: FULL RESULT: EXAMS: RIGHT HAND AND WRIST RADIOGRAPHY EXAM DATE: 07/18/2018 11:22 AM. CLINICAL HISTORY: Right wrist pain. COMPARISON: HAND 2 VIEW RT 07/18/2018 11:07 AM. TECHNIQUE: 4 views of the wrist and two views of the hand. FINDINGS: Bones: Lucency with minimal sclerosis in the scaphoid seen on multiple views. Joints: Normal. No subluxations in the hand or wrist. Soft Tissues: Vascular calcifications. IMPRESSION: Subacute scaphoid fracture. RADIA
--- NOTE | 2018-07-18 14:28 | XRAY Report ---
Reason: Right wrist pain Procedure Date: 07/18/2018 Accession Number: [id number] / [id number] Procedure: XR - Wrist 4 View RT CPT Code: FULL RESULT: EXAMS: RIGHT HAND AND WRIST RADIOGRAPHY EXAM DATE: 07/18/2018 11:22 AM. CLINICAL HISTORY: Right wrist pain. COMPARISON: HAND 2 VIEW RT 07/18/2018 11:07 AM. TECHNIQUE: 4 views of the wrist and two views of the hand. FINDINGS: Bones: Lucency with minimal sclerosis in the scaphoid seen on multiple views. Joints: Normal. No subluxations in the hand or wrist. Soft Tissues: Vascular calcifications. IMPRESSION: Subacute scaphoid fracture. RADIA
== END 2018-07-18 10:49 | disposition home or self-care (01) ==
LOC: DI 10:48
PROVIDERS: ATTEND Nurse Practitioner Family
DX: S62.001A Unspecified fracture of navicular [scaphoid] bone of right wrist, initial encounter for closed fracture (principal)

== ENCOUNTER 2018-09-02 13:08 | Day surgery (SDC) | payer MEDICARE, BC ==
[2018-09-02] MEDS ORDERED: ceFAZolin 2 GM/50 ML 2 GM/50 ML BAG IV ONE (13:19)
[2018-09-02] MEDS ORDERED: LACTATED RINGERS 1,000 ML IV ONE (13:57)
--- NOTE | 2018-09-02 14:42 | ANESTHESIA ---
Pre-Anesthesia VS, & Labs - Diagnosis lymphoma - Procedure Port-a-cath placement Vital Signs: Temp Pulse Resp BP Pulse Ox 36.5 C 77 18 142/83 H 98 09/02/18 13:15 09/02/18 13:15 09/02/18 13:15 09/02/18 13:15 09/02/18 13:15 Height 6 ft Weight (kg) 106.2 kg Body Mass Index 32.3 - NPO >8 hours Home Medications and Allergies Amlodipine Besylate 10 mg PO DAILY 06/21/17 Atorvastatin Calcium 20 mg PO 2100 06/21/17 Famotidine 40 mg PO DAILY 06/21/17 Lisinopril 40 mg PO DAILY 06/21/17 Aspirin [Adult Aspirin Regimen] 81 mg PO DAILY 07/15/17 Fluticasone [Flonase] 1 spray INH PRN PRN 07/15/17 Furosemide 20 mg PO DAILY 08/04/18 Losartan Potassium 100 mg PO DAILY 08/04/18 Metoprolol Succinate [Toprol Xl] 50 mg PO DAILY 08/04/18 Allergies/Adverse Reactions: Allergies Allergy/AdvReac Type Severity Reaction Status Date / Time No Known Drug Allergies Allergy Verified 06/21/17 02:07 Anes History & Medical History - Anesthetic History Anesthesia Complications: reports: No previous complications Family history of Anesthesia Complications: Denies Family history of Malignant Hyperthermia: Denies - Medical History Cardiovascular: reports: Hypertension, High cholesterol Pulmonary: reports: None Gastrointestinal: reports: GERD Urinary: reports: None Musculoskeletal: reports: Gout, Other (c/o sprained R wrist with signing papers) Skin: reports: None Smoking Status: Never smoker - Surgical History General: Cholecystectomy Orthopedic: Rotator cuff repair Exam General: Alert, Oriented x3, Cooperative Dental: WNL Mouth Openin Fingerbreadth Neck Mobility: Normal Mallampati classification: I Thyromental Distance: 4-6 cm Respiratory: Lungs clear, Normal breath sounds Cardiovascular: Regular rate Neurological: Normal speech Mental/Cognitive Status: Alert/Oriented X3 Cognitive Status: Within normal limits Plan Anesthesia Type: MAC Consent for Procedure(s) Verified and Reviewed: Yes Code Status: Attempt Resuscitation ASA classification: 3-Severe systemic disease Is this case an emergency?: No
[2018-09-02] MEDS ORDERED: BUPIVACAINE 0.5% PF 30 ML VIAL ONE (15:19)
[2018-09-02] MEDS ORDERED: MIDAZOLAM 2 MG/2 ML VIAL IVP ONE (16:05)
[2018-09-02] MEDS ORDERED: GLYCOPYRROLATE 1 MG/5 ML VIAL IVP ONE (16:05)
[2018-09-02] MEDS ORDERED: LIDOCAINE-MPF 2% 5 ML VIAL IM ONE (16:05)
[2018-09-02] MEDS ORDERED: KETAMINE 500 MG/10 ML VIAL IVP ONE (16:05)
[2018-09-02] MEDS ORDERED: PROPOFOL 200 MG/20 ML VIAL IVP ONE (16:05)
[2018-09-02] MEDS ORDERED: BUPIVACAINE 0.5% PF 30 ML VIAL INFIL ONE ×2 (16:11)
[2018-09-02] MEDS ORDERED: HYDROcod/ACETAM 5/325 MG TABLET PO PRN (16:33)
[2018-09-02] MEDS ORDERED: HYDROmorphone 0.5 MG/0.5 ML SYRINGE IVP PRN (16:33)
[2018-09-02] MEDS ORDERED: ONDANSETRON 4 MG/2 ML VIAL IVP PRN (16:33)
--- NOTE | 2018-09-02 16:37 | OPERATIVE REPORT ---
Operative Report - General Procedure Date: 09/02/18 Planned Procedure: Port-A-Cath placement Pre-Op Diagnosis: Lymphoma Procedure Performed: Port-A-Cath placement Post Op Diagnosis: Same - Procedure Note Primary Surgeon: Torsten Cortez MD Anesthesia Provider: Heath Ramirez CRNA Anesthesia Technique: Local (15 mL of half percent Marcaine), MAC IV Fluids (mL): 500 Estimated Blood Loss (mL): 5 Drain/Tube Type: Other (None.) Complications: None. Chest x-ray showed catheter in good position in the supracardiac vena cava without pneumothorax. - Other Other Information/Narrative: OPERATIVE DESCRIPTION/REPORT: After verbal and written informed consent was obtained detailing the risks of infection, bleeding requiring transfusion with its risks, nerve injury, and , and after I met with the patient confirming the surgery and the site of the surgery, the patient was brought to the operative suite and placed supine on the operating table. Great care was taken to avoid pressure points to prevent pressure necrosis or nerve injury. Monitoring devices were applied along with TEDs and pneumatic compressive stockings (to prevent DVT). The patient received preoperative antibiotics for surgical prophylaxis. Heath Ramirez CRNA sedated and anesthetized the patient for the entire procedure. The patient was prepped and draped in the usual sterile manner. A "time in" then confirmed that the patient was identified with 3 identifiers (name, date and medical record number), the history and physical was in the chart, the signed consent confirming the procedure was in the chart, the patient was in the correct position, the aforementioned prophylactic measures were in place or given, we had the correct personnel and equipment to complete the procedure and that anesthesia, surgery and nursing were given an opportunity to express any concerns. With the agreement of everyone in the room, we proceeded with the operation. After the subclavian region was anesthetized using % marcaine and the patient placed in Trendelenberg position, an [employer] Smartport kit (Catalog #[id number], Lot #[id number]) was opened. The finder needle was inserted into the subclavian vein taking great care to place it just under the clavicle in order to minimize the risk of pneumothorax. When good venous blood return was obtained, the wire was placed through the needle and into the vein without difficulty. Cardiac irritability confirmed that the catheter was correctly going down towards the heart. Below and lateral to the needle insertion site, the area was anesthetized again using % marcaine and a transverse incision was made just large enough to accommodate the port. This incision was taken down to the fascia using sharp dissection and the area for the port was created using blunt downward dissection. Meticulous hemostasis was obtained using Bovie electrocautery. A knife was inserted along the wire to widen the insertion site and this was further dilated using a Eduarda. The port was flushed with heparinized saline and placed in the pouch and the catheter was then passed to the needle opening using the passer. The catheter was then measured against the patients anterior chest and cut so that the tip would lie 2 cm below the manubrial-sternal junction. The port was secured to the fascia using a 3-0 Prolene on the side of the opening of the port. The catheter was then wiped and wrapped with a heparinized soaked 4x4. The dilator and sheath were then carefully inserted over the wire and the dilator and wire withdrawn. The catheter was then inserted into the sheath and the sheath was broken away from the catheter leaving the catheter in place in the vein. An X-ray confirmed placement of the catheter tip in the right atrium/supracardiac vena cava without pneumothorax. Using a Hueber needle the port was accessed and good blood return as well as easy flush was noted. The subcutaneous tissue was approximated using 3-0 Vicryl and the skin incisions were approximated with 4-0 Monocryl in a subcuticular fashion. The skin prep was washed off and prepped with benzoin. Steristrips were applied. At this point a time out was performed that confirmed that all the counts were correct, the procedure that was performed, the blood loss, the IV fluids administered, and the patients condition. A dressing was placed on the wound. Having tolerated the procedure well, the patient was taken to short stay in good and stable condition. The patient was instructed that the Portacath could be used immediately. Tyfone disclaimer: This document was created in part using voice recognition technology. Because of the inherent limitations of the system ([employer]'s [employer] D[employer] user manual states that the licensee understands that speech recognition is a statistical process and that recognition errors are inherent in the process), occasional same sounding word substitutions and grammatical errors do occur and persist despite proofreading. Please read this document for context.
--- NOTE | 2018-09-02 16:45 | XRAY Report ---
Reason: line placement Procedure Date: 09/02/2018 Accession Number: [id number] / [id number] Procedure: XR - Chest for Line Placement CPT Code: FULL RESULT: EXAM: CHEST RADIOGRAPHY EXAM DATE: 09/02/2018 04:27 PM. CLINICAL HISTORY: Line placement. COMPARISON: None. TECHNIQUE: 1 view. FINDINGS: Lungs/Pleura: Increased interstitial markings and peribronchial cuffing in this setting most suggestive of pulmonary edema. Mediastinum: Marked cardiomegaly with widening of the vascular pedicle. Other: A left subclavian vein port terminates with its tip projecting over the vascular pedicle in the right hemithorax at the level of the aortic arch. IMPRESSION: Central line positioning as described. If the port flushes and aspirates venous blood adequately, positioning likely near the juncture of the brachiocephalic and superior vena cava. RADIA
[2018-09-02 17:13] VITALS: BP 164/87
== END 2018-09-02 13:09 | disposition home or self-care (01) ==
LOC: SDS 13:08
PROVIDERS: ATTEND Surgery
PROC: 02HV33Z Insertion of Infusion Device into Superior Vena Cava, Percutaneous Approach (ICD-10-PCS; principal; 2018-09-02 14:15)
DX: C85.90 Non-Hodgkin lymphoma, unspecified, unspecified site (principal); I10 Essential (primary) hypertension; K21.9 Gastro-esophageal reflux disease without esophagitis; M10.9 Gout, unspecified; E78.2 Mixed hyperlipidemia; E66.9 Obesity, unspecified; Z68.33 Body mass index [BMI] 33.0-33.9, adult; F32.9 Major depressive disorder, single episode, unspecified; Z79.82 Long term (current) use of aspirin; Z79.891 Long term (current) use of opiate analgesic; Z87.891 Personal history of nicotine dependence
CPT/HCPCS: 36561; C1788; J0690; J7120; 71045

== ENCOUNTER 2020-11-30 08:59 | Outpatient (CLI) | payer MEDICARE, BC ==
[2020-11-30 15:25] LABS: ALBUMIN/GLOBULIN RATIO 1.5 (1.0-2.2); CALCIUM 9.1 mg/dL (8.5-10.3); POTASSIUM 3.5 mmol/L (3.5-5.0); TOTAL PROTEIN 6.7 g/dL (6.7-8.2); URIC ACID 8.3 mg/dL (2.6-7.2)
== END 2020-11-30 09:00 | disposition home or self-care (01) ==
LOC: LAB.S 08:59
PROVIDERS: ATTEND Physician Assistant
DX: M10.9 Gout, unspecified (principal)
CPT/HCPCS: 36415; 80053; 84550

== ENCOUNTER 2021-03-30 17:10 | Outpatient (CLI) | payer MEDICARE, BC | END 2021-03-30 17:11 | disposition EMS.NT | LOC: EMS 17:10 | DX: R55 Syncope and collapse (principal) ==

== ENCOUNTER 2022-07-09 10:05 | Outpatient (CLI) | payer MEDICARE, BC ==
[2022-07-09 14:21] LABS: BASOPHILS % (AUTO) 0.4 %; EOSINOPHILS # (AUTO) 0.2 10^3/uL (0.0-0.7); EOSINOPHILS % (AUTO) 1.9 %; HCT - HEMATOCRIT 42.8 % (42.0-52.0); HGB - HEMOGLOBIN 14.1 g/dL (14.0-18.0); LYMPHOCYTES % (AUTO) 12.3 %; MEAN CORPUSCULAR HEMOGLOBIN 29.9 pg (27.0-31.0); MEAN CORPUSCULAR HGB CONC 32.9 g/dL (32.0-36.0); MEAN CORPUSCULAR VOLUME 90.7 fL (80.0-94.0); MEAN PLATELET VOLUME 11.1 fL (7.4-11.4); MONOCYTES # (AUTO) 0.5 10^3/uL (0.0-1.0); MONOCYTES % (AUTO) 6.2 %; NEUTROPHILS # (AUTO) 6.2 10^3/uL (1.5-6.6); NEUTROPHILS % (AUTO) 78.2 %; PLT - PLATELET COUNT 238 10^3/uL (130-450); RED BLOOD COUNT 4.72 10^6/uL (4.70-6.10); RED CELL DISTRIBUTION WIDTH 12.9 % (12.0-15.0); WHITE BLOOD COUNT 7.9 x10^3/uL (4.8-10.8)
[2022-07-09 14:43] LABS: BUN - BLOOD UREA NITROGEN 19 mg/dL (6-20); CALCIUM 8.6 mg/dL (8.5-10.3); CARBON DIOXIDE - CO2 30 mmol/L (21-32); CHLORIDE 100 mmol/L (101-111); CREATININE 0.9 mg/dL (0.6-1.2); GFR - MDRD 83 (>89); GLUCOSE 146 mg/dL (70-100); POTASSIUM 3.5 mmol/L (3.5-5.0); SODIUM 139 mmol/L (135-145); URIC ACID 7.1 mg/dL (2.6-7.2)
[2022-07-09 14:44] LABS: CRP - C-REACTIVE PROTEIN < 1.0 mg/dL (0-1.0)
== END 2022-07-09 10:06 | disposition home or self-care (01) ==
LOC: LAB.S 10:05
PROVIDERS: ATTEND Emergency Medicine
DX: M00.9 Pyogenic arthritis, unspecified (principal); M10.021 Idiopathic gout, right elbow
CPT/HCPCS: 36415; 80048; 84550; 85025; 86140

== ENCOUNTER 2023-08-21 11:30 | Emergency (ER) | payer MEDICARE, OTHER ==
[2023-08-21 12:25] LABS: BASOPHILS % (AUTO) 0.4 %; EOSINOPHILS # (AUTO) 0.1 10^3/uL (0.0-0.7); EOSINOPHILS % (AUTO) 0.9 %; HCT - HEMATOCRIT 46.9 % (42.0-52.0); HGB - HEMOGLOBIN 15.6 g/dL (14.0-18.0); LYMPHOCYTES % (AUTO) 12.6 %; MEAN CORPUSCULAR HEMOGLOBIN 28.4 pg (27.0-31.0); MEAN CORPUSCULAR HGB CONC 33.3 g/dL (32.0-36.0); MEAN CORPUSCULAR VOLUME 85.3 fL (80.0-94.0); MEAN PLATELET VOLUME 10.3 fL (7.4-11.4); MONOCYTES # (AUTO) 0.6 10^3/uL (0.0-1.0); NEUTROPHILS # (AUTO) 6.4 10^3/uL (1.5-6.6); NEUTROPHILS % (AUTO) 78.6 %; PLT - PLATELET COUNT 175 10^3/uL (130-450); RED CELL DISTRIBUTION WIDTH 13.5 % (12.0-15.0); WHITE BLOOD COUNT 8.1 x10^3/uL (4.8-10.8)
--- NOTE | 2023-08-21 12:30 | ED Physician Documentation ---
PD HPI FOCAL NEURO - Stated complaint Stated Complaint: CONFUSION,SENT BY PCP - Chief complaint Chief Complaint: Neuro - History obtained from History obtained from: Patient - Additional information Additional information: 73-year-old gent with history of hypertension hyperlipidemia developed some confusion on Super Bowsaturday, 3 days ago. He states that he first noticed it during the football game and he was not able to process the plays as he would normally. Since then he has had difficulty with sudoku which he usually does frequently and just does not feel right. Sent here from the clinic for further evaluation and treatment. Denies any history of primary neurologic problem such as stroke, TIA, but did have a concussion maybe 20 years ago. PD PAST MEDICAL HISTORY - Past Medical History Past Medical History: Yes Cardiovascular: Hypertension, High cholesterol Respiratory: None Endocrine/Autoimmune: None GI: GERD, Diverticulitis : Kidney stones HEENT: None Psych: None Musculoskeletal: Gout, Other Derm: None Other Past Medical History: lymphoma - Past Surgical History Past Surgical History: Yes General: Cholecystectomy Ortho: Rotator cuff repair - Present Medications Home Medications: Ambulatory Orders Medication Instructions Recorded Confirmed Amlodipine Besylate 5 mg PO DAILY 06/21/17 08/21/23 Atorvastatin Calcium 20 mg PO 2100 06/21/17 08/21/23 Famotidine 40 mg PO DAILY 06/21/17 08/21/23 Fluticasone [Flonase] 1 spray INH PRN PRN 07/15/17 08/21/23 Furosemide 40 mg PO DAILY 08/04/18 08/21/23 Losartan Potassium 100 mg PO DAILY 08/04/18 08/21/23 Metoprolol Succinate [Toprol Xl] 50 mg PO DAILY 08/04/18 08/21/23 Aspirin [Aspirin EC] 81 mg PO DAILY #90 tab 08/21/23 Clopidogrel Bisulfate [Plavix] 75 mg PO DAILY #21 tab 08/21/23 - Allergies Allergies/Adverse Reactions: Allergies Allergy/AdvReac Type Severity Reaction Status Date / Time No Known Drug Allergies Allergy Verified 08/21/23 11:44 - Social History Does the pt smoke?: No Smoking Status: Former smoker Does the pt drink ETOH?: Yes ETOH Use: Liquor Does the pt have substance abuse?: Yes Substance Use and Type: CBD oil / Products - Immunizations Immunizations are current?: Yes - POLST Patient has POLST: No POLST Status: Full Code PD ED PE NORMAL - Vitals Vital signs reviewed: Yes - General General: Alert and oriented X 3, No acute distress, Other (Very slightly slow to answer questions but is alert and oriented.) - HEENT HEENT: PERRL, EOMI - Neck Neck: Supple, no meningeal sign, No bony TTP - Cardiac Cardiac: RRR, No murmur - Respiratory Respiratory: No respiratory distress, Clear bilaterally - Abdomen Abdomen: Normal bowel sounds, Soft, Non tender - Derm Derm: Normal color - Extremities Extremities: No edema, No calf tenderness / cord - Neuro Neuro: Alert and oriented X 3, 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, No motor deficit, No sensory deficit, Normal speech, Other (Left hand tremor which she says is chronic and unchanged from prior.) Eye Opening: Spontaneous Motor: Obeys Commands Verbal: Oriented GCS Score: 15 - Psych Psych: Normal mood, Normal affect NIHSS - Time Time: 12:25 - Level of Consciousness Level of consciousness: (0) Alert, Keenly responsive LOC Questions: (0) Answers both Q's correct LOC Commands: (0) Performs both correctly - Gaze Best Gaze: (0) Normal - Visual Visual: (0) No loss - Facial Palsy Facial Palsy: (0) Normal, symmetrical movement - Motor Arms (both separate) Motor Arm (right): (0) No drift Motor Arm (left): (0) No drift - Motor Legs (both separate) Motor Leg (right): (0) No drift Motor Leg (left): (0) No drift - Limb Ataxia Limb Ataxia: (0) Absent - Sensory Sensory: (0) Normal - Best Language Best Language: (0) No aphasia - Dysarthria Dysarthria: (0) Normal - Extinction and Inattention (formally neg Extinction and inattention: (0) No abnormality - Total Score/Results Total Score/Result: 0 Results - Vitals Vitals: Vital Signs - 24 hr 08/21/23 08/21/23 08/21/23 11:47 11:56 14:30 Temperature 36.4 C L Heart Rate 66 65 Respiratory 18 17 18 Rate Blood Pressure 170/92 H 129/79 137/89 H O2 Saturation 97 92 08/21/23 17:17 Temperature Heart Rate 66 Respiratory 16 Rate Blood Pressure 158/82 H O2 Saturation 97 Oxygen O2 Source Room air - EKG (time done) 1222 EKG releavant findings:: EKG personally interpreted by author of this note. Relevant findings are: Rate: Rate (enter#) (68) Rhythm: NSR [place]: Normal Intervals: Normal [place] QRS: LVH Ischemia: Normal ST segments - Labs Labs: Laboratory Tests 08/21/23 08/21/23 08/21/23 12:21 12:21 14:10 WBC 8.1 RBC 5.50 Hgb 15.6 Hct 46.9 MCV 85.3 MCH 28.4 MCHC 33.3 RDW 13.5 Plt Count 175 MPV 10.3 Neut # (Auto) 6.4 Lymph # (Auto) 1.0 L [place] # (Auto) 0.6 Eos # (Auto) 0.1 Baso # (Auto) 0.0 Absolute Nucleated RBC 0.00 Nucleated RBC % 0.0 Sodium 140 Potassium 4.3 Chloride 102 Carbon Dioxide 30 Anion Gap 8.0 BUN 15 Creatinine 1.0 Estimated GFR (MDRD) 73 L Glucose 117 H Calcium 9.6 Total Bilirubin 1.3 H AST 17 ALT 23 Alkaline Phosphatase 95 Total Protein 7.0 Albumin 4.5 Globulin 2.5 Albumin/Globulin Ratio 1.8 Lipase 24 Urine Color YELLOW Urine Clarity CLEAR Urine pH 6.5 Ur Specific [place] 1.010 Urine Protein NEGATIVE Urine Glucose (UA) NEGATIVE Urine Ketones NEGATIVE Urine Occult Blood NEGATIVE Urine Nitrite NEGATIVE Urine Bilirubin NEGATIVE Urine Urobilinogen 0.2 (NORMAL) Ur Leukocyte Esterase NEGATIVE Ur Microscopic Review NOT INDICATED Urine Culture Comments NOT INDICATED - Rads (name of study) MRI Brain- Small subacute areas of right posterior cerebral infarct. Relevant Findings:: Final report received, EMP independent interpretation of test Prelim echo report was normal per the tech without thrombus. Relevant Findings:: Prelim report reviewed PD Medical Decision Making - ED course ED course: 73-year-old gentleman who presents with some nonspecific neurologic symptoms with negative NIH stroke scale. He is well outside the window for tPA or intervention. Brain MRI was done which showed some small right-sided subacute punctate, possibly embolic? Infarcts. I ordered aspirin and Plavix and will obtain echo and carotid Dopplers. Echo reported to me is unremarkable with no evidence of thrombus. Carotid dopplers without need for intervention. He has completed small CVA. Already on statin. Will do DAPT x 3 weeks then ASA alone. Departure - Departure Disposition: 01 Home, Self Care Clinical Impression: Cerebrovascular accident (CVA) Qualifiers: CVA mechanism: unspecified Qualified Code(s): I63.9 - Cerebral infarction, unspecified Condition: Good Record reviewed to determine appropriate education?: Yes Instructions: ED Stroke Completed Prescriptions: Aspirin [Aspirin EC] 81 mg PO DAILY #90 tab Clopidogrel Bisulfate [Plavix] 75 mg PO DAILY #21 tab Comments: You are seen today for a small stroke on the right side which is probably causing the issues you are noticing. Given the small size of the strokes I do expect you to probably recover. I do want you to continue your cholesterol medication and for the next 3 weeks you are going to do "dual antiplatelet therapy" which is 2 antiplatelet blood thinners, clopidogrel and aspirin. After 3 weeks just continue taking a baby aspirin a day. I sent your prescription electronically to the [facility] in [place]. Call your doctor to arrange a follow-up appointment, make the next available appointment. In the interim, return anytime if worse or if new symptoms develop. Forms: PCP List Discharge Date/Time: 08/21/23 19:17
[2023-08-21 12:56] LABS: ALBUMIN 4.5 g/dL (3.2-5.5); ALBUMIN/GLOBULIN RATIO 1.8 (1.0-2.2); BILIRUBIN,TOTAL 1.3 mg/dL (0.2-1.0); CALCIUM 9.6 mg/dL (8.5-10.3); POTASSIUM 4.3 mmol/L (3.5-4.5)
--- NOTE | 2023-08-21 14:29 | MRI Report ---
PROCEDURE: Brain WO INDICATIONS: confusion, memory loss TECHNIQUE: Noncontrast axial T1 spin echo, axial T2 fast spin echo, sagittal and axial FLAIR, coronal T2 fast sp in echo, axial gradient echo, axial diffusion and ADC through the brain. COMPARISON: None. FINDINGS: Image quality: Excellent. CSF Spaces: Basal cisterns are patent. No extra-axial fluid collections. Ventricles are normal in size and shape. Brain: No intracranial masses or hemorrhage. See/white matter interface is normal. Brainstem appe ars normal. Diffusion-weighted images demonstrate several small, less than 10 mm diameter regions of elevated signal intensity within the right posterior medial parietal and occipital lobe as well as t he right posterior inferior temporal lobe. These lesions demonstrate low ADC map signal, as well as m ild FLAIR signal elevation. Mild diffuse cerebral volume loss is present. Mild degree of patchy high FLAIR signal within the periventricular and subcortical white matter. No chronic ischemic insults. N ormal intravascular flow voids are present. Skull and face: Calvarium has normal marrow signal. Orbits appear normal. Sinuses: Sinuses and mastoids are clear. IMPRESSION: 1. Small subacute infarcts within the right posterior cerebral hemisphere as above. 2. Mild volume loss and small vessel ischemic disease. Reviewed by: Luna Vu MD on 08/21/2023 2:27 PM PST Approved by: Luna Vu MD on 08/21/2023 2:27 PM PST Station ID: [id number]
[2023-08-21 14:34] LABS: BILIRUBIN,URINE NEGATIVE (NEGATIVE); CLARITY,URINE CLEAR (CLEAR); GLUCOSE, URINE (UA) NEGATIVE (NEGATIVE); KETONES,URINE (UA) NEGATIVE (NEGATIVE); LEUKOCYTE ESTERASE, URINE NEGATIVE (NEGATIVE); NITRITE,URINE NEGATIVE (NEGATIVE); OCCULT BLOOD,URINE NEGATIVE (NEGATIVE); PH,URINE 6.5 PH (5.0-7.5); PROTEIN,URINE NEGATIVE (NEGATIVE); UROBILINOGEN,URINE 0.2 (NORMAL) E.U./dL (NORMAL)
[2023-08-21] MEDS: ASPIRIN CHEW 81 MG TABLET PO STA (14:57)
[2023-08-21] MEDS: CLOPIDOGREL 75 MG TABLET PO STA (14:58)
[2023-08-21 17:20] VITALS: BP 158/82; O2SAT 97
--- NOTE | 2023-08-21 19:02 | Ultrasound Report ---
PROCEDURE: Carotid Doppler Complete INDICATIONS: cva TECHNIQUE: Color and pulse Doppler interrogation was performed of both carotid systems, with image documentation and velocity measurements. COMPARISON: None. FINDINGS: Right side: Brachial blood pressure: 144/86 mm Hg. Common carotid artery peak systolic velocity: 65.53 cm/sec. Internal carotid artery peak systolic velocity: 52.42 cm/sec. Internal carotid artery end diastolic velocity: 14.24 cm/sec. External carotid artery peak systolic velocity: 76.34 cm/sec. ICA/CCA peak systolic ratio: 0.8 . See scale imaging description: Mild atherosclerotic plaque. Percent internal carotid artery stenosis: Less than 50%. Vertebral artery: Flow direction is antegrade. Left side: Brachial blood pressure: 153/78 mm Hg. Common carotid artery peak systolic velocity: 68.75 cm/sec. Internal carotid artery peak systolic velocity: 63.73 cm/sec. Internal carotid artery end diastolic velocity: 18.98 cm/sec. External carotid artery peak systolic velocity: 53.54 cm/sec. ICA/CCA peak systolic ratio: 0.9 . See scale imaging description: Moderate atherosclerotic plaque. Percent internal carotid artery stenosis: Less than 50%. Vertebral artery: Flow direction is antegrade. IMPRESSION: 1. In the right internal carotid artery, there is less than 50 percent stenosis based on peak systoli c velocity criteria. 2. In the left internal carotid artery, there is less than 50 percent stenosis based on peak systolic velocity criteria. 3. Antegrade blood flow within the right vertebral artery. 4. Antegrade blood flow within the left vertebral artery. The estimate of stenosis included in the report of the imaging study was calculated using the [facility]-end orsed standards of carotid artery stenosis. Reviewed by: Yao Jalloh MD on 08/21/2023 7:01 PM PST Approved by: Yao Jalloh MD on 08/21/2023 7:01 PM PST Station ID: [id number]
== END 2023-08-21 19:17 | disposition home or self-care (01) ==
LOC: ED 11:30
DX: I63.9 Cerebral infarction, unspecified (principal); I10 Essential (primary) hypertension; Z87.891 Personal history of nicotine dependence
CPT/HCPCS: 36415; 70551; 80053; 81003; 83690; 85025; 93005; 93307; 93880; 99284; A9270; 81001; 87086

== ENCOUNTER 2023-12-16 12:53 | Emergency (ER) | payer MEDICARE, OTHER ==
[2023-12-16 13:43] LABS: BASOPHILS % (AUTO) 0.4 %; EOSINOPHILS # (AUTO) 0.1 10^3/uL (0.0-0.7); EOSINOPHILS % (AUTO) 1.6 %; HCT - HEMATOCRIT 45.2 % (42.0-52.0); HGB - HEMOGLOBIN 15.1 g/dL (14.0-18.0); LYMPHOCYTES # (AUTO) 0.9 10^3/uL (1.5-3.5); LYMPHOCYTES % (AUTO) 11.5 %; MEAN CORPUSCULAR HEMOGLOBIN 28.3 pg (27.0-31.0); MEAN CORPUSCULAR HGB CONC 33.4 g/dL (32.0-36.0); MEAN CORPUSCULAR VOLUME 84.8 fL (80.0-94.0); MEAN PLATELET VOLUME 10.5 fL (7.4-11.4); MONOCYTES # (AUTO) 0.5 10^3/uL (0.0-1.0); MONOCYTES % (AUTO) 6.8 %; NEUTROPHILS # (AUTO) 5.8 10^3/uL (1.5-6.6); NEUTROPHILS % (AUTO) 78.8 %; PLT - PLATELET COUNT 186 10^3/uL (130-450); RED BLOOD COUNT 5.33 10^6/uL (4.70-6.10); RED CELL DISTRIBUTION WIDTH 12.9 % (12.0-15.0); WHITE BLOOD COUNT 7.4 x10^3/uL (4.8-10.8)
[2023-12-16 13:58] LABS: ALBUMIN 4.2 g/dL (3.2-5.5); ALBUMIN/GLOBULIN RATIO 1.6 (1.0-2.2); BILIRUBIN,TOTAL 0.6 mg/dL (0.2-1.0); CALCIUM 9.3 mg/dL (8.5-10.3); MAGNESIUM 1.6 mg/dL (1.7-2.3); POTASSIUM 3.9 mmol/L (3.5-4.5); TOTAL PROTEIN 6.8 g/dL (6.4-8.9)
--- NOTE | 2023-12-16 15:11 | ED Physician Documentation ---
History of Present Illness - Stated complaint Stated Complaint: BP, GEN WEAKNESS - Chief complaint Chief Complaint: Neuro - History obtained from History obtained from: Patient - Additonal information Additional information: He felt lightheaded this morning. And he became worried about a stroke. He has no stroke symptoms but then started to take his blood pressure. He took it repeatedly and it trended up from 160/80 and up from there. Now he is feeling much better without specific intervention. He is taking his 4 antihypertensives. PD PAST MEDICAL HISTORY - Past Medical History Cardiovascular: Hypertension, High cholesterol Respiratory: None Endocrine/Autoimmune: None GI: GERD, Diverticulitis : Kidney stones HEENT: None Psych: None Musculoskeletal: Gout, Other Derm: None - Past Surgical History Past Surgical History: Yes General: Cholecystectomy Ortho: Rotator cuff repair - Present Medications Home Medications: Ambulatory Orders Medication Instructions Recorded Confirmed Amlodipine Besylate 5 mg PO DAILY 06/21/17 08/21/23 Atorvastatin Calcium 20 mg PO 2100 06/21/17 08/21/23 Famotidine 40 mg PO DAILY 06/21/17 08/21/23 Fluticasone [Flonase] 1 spray INH PRN PRN 07/15/17 08/21/23 Furosemide 40 mg PO DAILY 08/04/18 08/21/23 Losartan Potassium 100 mg PO DAILY 08/04/18 08/21/23 Metoprolol Succinate [Toprol Xl] 50 mg PO DAILY 08/04/18 08/21/23 Aspirin [Aspirin EC] 81 mg PO DAILY #90 tab 08/21/23 Clopidogrel Bisulfate [Plavix] 75 mg PO DAILY #21 tab 08/21/23 - Allergies Allergies/Adverse Reactions: Allergies Allergy/AdvReac Type Severity Reaction Status Date / Time No Known Drug Allergies Allergy Verified 12/16/23 13:07 - Social History Does the pt smoke?: No Smoking Status: Never smoker Does the pt drink ETOH?: Yes Does the pt have substance abuse?: Yes - Immunizations Immunizations are current?: Yes - POLST Patient has POLST: No POLST Status: Full Code PD ED PE NORMAL - Vitals Vital signs reviewed: Yes - General General: Alert and oriented X 3, No acute distress - HEENT HEENT: PERRL, EOMI - Neck Neck: Supple, no meningeal sign, No bony TTP - Cardiac Cardiac: RRR, No murmur - Respiratory Respiratory: No respiratory distress, Clear bilaterally - Abdomen Abdomen: Non tender - Extremities Extremities: No edema, No calf tenderness / cord - Neuro Neuro: Alert and oriented X 3, Normal speech, Other (NIH stroke scale of 0 done at 3:05 PM.) Eye Opening: Spontaneous Motor: Obeys Commands Verbal: Oriented GCS Score: 15 Results - Vitals Vitals: Vital Signs - 24 hr 12/16/23 12/16/23 12:59 15:06 Temperature 36.8 C Heart Rate 72 76 Respiratory 20 16 Rate Blood Pressure 163/80 H 137/85 H O2 Saturation 98 96 Oxygen O2 Source Room air - EKG (time done) 1443 EKG releavant findings:: EKG personally interpreted by author of this note. Relevant findings are: Rate: Rate (enter#) (73) Rhythm: NSR [place]: Normal Intervals: Normal [place] QRS: Normal Ischemia: Normal ST segments Computer interpretation: Agree with computer - Labs Labs: Laboratory Tests 12/16/23 12/16/23 13:40 13:40 WBC 7.4 RBC 5.33 Hgb 15.1 Hct 45.2 MCV 84.8 MCH 28.3 MCHC 33.4 RDW 12.9 Plt Count 186 MPV 10.5 Neut # (Auto) 5.8 Lymph # (Auto) 0.9 L [place] # (Auto) 0.5 Eos # (Auto) 0.1 Baso # (Auto) 0.0 Absolute Nucleated RBC 0.00 Nucleated RBC % 0.0 Sodium 139 Potassium 3.9 Chloride 103 Carbon Dioxide 31 Anion Gap 5.0 L BUN 14 Creatinine 1.0 Estimated GFR (MDRD) 73 L Glucose 167 H Calcium 9.3 Magnesium 1.6 L Total Bilirubin 0.6 AST 15 ALT 17 Alkaline Phosphatase 100 Total Protein 6.8 Albumin 4.2 Globulin 2.6 Albumin/Globulin Ratio 1.6 PD Medical Decision Making - ED course ED course: He presents with resolved elevated blood pressure at home with nonspecific lightheadedness. Now feeling better without specific intervention. EKG was unremarkable. Blood pressure on my evaluation was 135/60. Discussed with him that it is not necessary to check your blood pressure frequently especially if you are feeling bad as it often will trend up under the circumstances. CBC and CMP unremarkable save mild hyperglycemia. Departure - Departure Disposition: 01 Home, Self Care Clinical Impression: Hypertension Qualifiers: Hypertension type: primary hypertension Qualified Code(s): I10 - Essential (primary) hypertension Condition: Good Record reviewed to determine appropriate education?: Yes Instructions: ED HTN Established Comments: Track your blood pressures just once a day and report to your primary care physician in a week with these numbers. Return for new or worsening symptoms. You can continue your current antihypertensives.
[2023-12-16 15:17] VITALS: BP 137/85
[2023-12-16 15:26] VITALS: O2SAT 94
== END 2023-12-16 15:16 | disposition home or self-care (01) ==
LOC: ED 12:53
DX: I10 Essential (primary) hypertension (principal); E78.00 Pure hypercholesterolemia, unspecified; Z87.19 Personal history of other diseases of the digestive system; Z87.442 Personal history of urinary calculi; Z79.02 Long term (current) use of antithrombotics/antiplatelets; Z79.899 Other long term (current) drug therapy
CPT/HCPCS: 36415; 80053; 83735; 85025; 93005; 99283